=== PATIENT | male | born 1990 | race Caucasian/White ===

== ENCOUNTER 2024-05-25 14:26 | Emergency (ER) | payer OTHER, SELFPAY ==
[2024-05-25 14:37] VITALS: BP 140/93; PULSE 94; RESP 20; TEMP 36.7; O2SAT 100; BMI 21.5
--- NOTE | 2024-05-25 14:52 | DI.RAD.S_ITS ---
PROCEDURE: XR WRIST LT MIN 3V INDICATIONS: Animal Attack, swelling TECHNIQUE: 4 views of the wrist were acquired. COMPARISON: None. FINDINGS: Bones: Cortical irregularity of the distal radial metaphysis laterally. No suspicious bony lesions. Soft tissues: Subcutaneous emphysema is noted at the distal wrist. Small hyperdense focus anterior to the distal radius in the subcutaneous soft tissues. No suspicious soft tissue calcifications. IMPRESSION: Cortical irregularity and step-off of the distal radius laterally consistent with mildly displaced fracture. Subcutaneous emphysema within the overlying soft tissues. Small hyperdense focus anterior to the distal radius, only seen on lateral view, may represent foreign body or tiny osseous fragment. Dictated by: Bernardino Harrington M.D. on 05/25/2024 at 14:38 Approved by: Bernardino Harrington M.D. on 05/25/2024 at 14:40
[2024-05-25] MEDS: OXYCODONE IR 5 MG TABLET PO ×2 (15:29→18:50)
[2024-05-25] MEDS: ONDANSETRON 4 MG ODT SL (15:30)
[2024-05-25] MEDS: TET,DIPH,PERTUSS(ACELL),VAC/PF 0.5 ML SYRINGE IM (16:15)
[2024-05-25] MEDS: AMOXICILLIN/CLAV 875/125 MG 1 TAB PO (16:15)
[2024-05-25] MEDS: BACITRACIN OINT 0.9 GM PCKT 1 APPLIC TOP (17:00)
[2024-05-25 17:30] VITALS: PULSE 118; RESP 20; O2SAT 96
--- NOTE | 2024-05-25 18:41 | ED_ITS ---
HPI - Animal Bite General Chief Complaint: Animal Bite Stated Complaint: Bit by dog Time Seen by Provider: 05/25/24 15:03 Source: patient Mode of arrival: Ambulatory History of Present Illness HPI narrative: 33-year-old man who arrives by private vehicle accompanied by family. He was bitten by a friend's gracie dog when the dog attacked his daughter and he attempted to intervene. Bites were primary of the left hand he also had a bite to the back on the left side. Reports some numbness in his left fingers. His tetanus is not current. He is otherwise healthy. I would consider this to be a provoked bite. Dog is a household pet known to the patient. Related Data Previous Rx's Medication Instructions Recorded amoxicillin 875 mg-potassium 1 tab PO BID #10 tabs 05/25/24 clavulanate 125 mg tablet hydrocodone 5 mg-acetaminophen 325 1 tab PO Q4H PRN pain #14 tabs 05/25/24 mg tablet Allergies Allergy/AdvReac Type Severity Reaction Status Date / Time No Known Drug Allergies Allergy Verified 05/25/24 14:37 Patient History Social History Smoking Status: Current every day smoker Smoking Status: Current every day smoker alcohol intake frequency: holidays/special occasions only Substance Use Type: marijuana Exam Initial Vital Signs Initial Vital Signs: Vital Signs Temperature 98.0 F 05/25/24 14:37 Pulse Rate 94 H 05/25/24 14:37 Respiratory Rate 20 05/25/24 14:37 Blood Pressure 140/93 H 05/25/24 14:37 Pulse Oximetry 100 05/25/24 14:37 Oxygen Delivery Method Room Air 05/25/24 14:37 Normocephalic atraumatic Chest Other: Superficial laceration to the left posterior thorax. Nothing suturable no penetrating injury Extrem Other: Left upper extremity has multiple dog bite wounds. There is a 1 cm puncture wound over the dorsum of the 3rd metacarpal. There is a puncture wound in the 1st webspace and the back of the thumb near the MCP joint. There is a 3 cm linear laceration overlying the flexor tendons of the distal left forearm just proximal to the flexor crease. There is also a puncture wound at the flexor crease on the radial aspect of the forearm. Patient has good flexion and extension of all 5 fingers. He has intact light touch sensation in all 5 fingers and capillary refills intact. He is reporting paresthesias in the fingers and pain with movement. Procedures Laceration Repair Laceration 1: Site: other (Left wrist) Size (cm): 3 Skin layer closed with: nylon Skin layer suture size: 4-0 Technique: simple, interrupted Orthopedic Splinting/Casting Injury #1: Side: left Upper Extremity Immobilizer: volar splint Post splinting neuro exam: intact Post splinting vascular exam: intact Placed by: Nursing Course Orders Ordered: ED Orders 05/25/24 14:52 XR wrist LT min 3V Stat Discontinued Medications Amoxicillin/Clavulanate Potassium (Amoxicillin/Clav 875/125 Mg) 1 tab PO NOW O NE Stop: 05/25/24 15:51 Last Admin: 05/25/24 16:15 Dose: 1 tab Documented By: Bacitracin (Bacitracin Oint 0.9 Gm Pckt) 1 applic TOP NOW ONE Stop: 05/25/24 16:50 Last Admin: 05/25/24 17:00 Dose: 1 applic Documented By: Diphtheria/Tetanus/Acell Pertussis (Tet,Diph,Pertuss(Acell),Vac/Pf 0.5 Ml Syringe) 0.5 ml IM .ONCE ONE Stop: 05/25/24 15:51 Last Admin: 05/25/24 16:15 Dose: 0.5 ml Documented By: Ondansetron HCl (Ondansetron 4 Mg Odt) 4 mg SL NOW ONE Stop: 05/25/24 15:22 Last Admin: 05/25/24 15:30 Dose: 4 mg Documented By: Oxycodone HCl (Oxycodone Ir 5 Mg Tablet) 5 mg PO NOW ONE Stop: 05/25/24 15:22 Last Admin: 05/25/24 15:29 Dose: 5 mg Documented By: Oxycodone HCl (Oxycodone Ir 5 Mg Tablet) 5 mg PO NOW ONE Stop: 05/25/24 18:42 Last Admin: 05/25/24 18:50 Dose: 5 mg Consultations Consultation #1: Case was discussed with Orthopedics, Dr. Any Haskins, will see the patient and follow up Vital Signs Vital signs: Vital Signs - 8 hr 05/25/24 14:37 05/25/24 17:30 Temperature 98.0 F Pulse Rate 94 H 118 H Respiratory Rate 20 20 Blood Pressure 140/93 H Pulse Oximetry 100 Oxygen Delivery Method Room Air MDM - Animal Bite Imaging Data Extremity x-ray #1: My Impression: Left wrist, possible cortical fracture of the distal radius, some soft tissue gas. No displaced fracture. No foreign body observed Radiologist's Impression: [address] [place] [id number] XRay Report Signed Patient: David Collins MR#: [id number] : 1990 Acct:[id number] Age/Sex: 33 / M Date of Service: 05/25/24 Loc: ED Accession Number: [id number] Procedure: XR wrist LT min 3V Ordering Provider: Stefani Gómez D.O. PROCEDURE: XR WRIST LT MIN 3V INDICATIONS: Animal Attack, swelling TECHNIQUE: 4 views of the wrist were acquired. COMPARISON: None. FINDINGS: Bones: Cortical irregularity of the distal radial metaphysis laterally. No suspicious bony lesions. Soft tissues: Subcutaneous emphysema is noted at the distal wrist. Small hyperdense focus anterior to the distal radius in the subcutaneous soft tissues. No suspicious soft tissue calcifications. IMPRESSION: Cortical irregularity and step-off of the distal radius laterally consistent with mildly displaced fracture. Subcutaneous emphysema within the overlying soft tissues. Small hyperdense focus anterior to the distal radius, only seen on lateral view, may represent foreign body or tiny osseous fragment. Dictated by: Bernardino Harrington M.D. on 05/25/2024 at 14:38 Approved by: Bernardino Harrington M.D. on 05/25/2024 at 14:40 [facility] [place] Narrative Medical decision making narrative: 34-year-old male with dog bite to left hand and wrist. Wounds were irrigated in the emergency department, there was 1 laceration that I did loosely approximate. Had some pain with movement and laceration is in the area of flexor tendons. He is referred to orthopedics for follow up. Patient was started on Augmentin. Provided a prescription for [place] for pain. He is going to follow up with Orthopedics he was splinted in position of function. Discharge Plan Departure Patient Disposition: Home Clinical Impression: Dog bite Qualifiers: Encounter type: initial encounter Qualified Code(s): W54.0XXA - Bitten by dog, initial encounter Instructions: DI for Dog Bite Prescriptions: New amoxicillin-pot clavulanate 875-125 mg tablet 1 tab PO BID Qty: 10 0RF hydrocodone-acetaminophen 5-325 mg tablet 1 tab PO Q4H PRN (Reason: pain) Qty: 14 0RF Referrals: Miscellaneous,[facility] [Primary Care Provider] - Kimberly Haskins MD [Physician] - Stand Alone Forms: Patient Portal/API
[2024-05-25 19:34] VITALS: BP 146/73; PULSE 86; RESP 16; O2SAT 98
--- NOTE | 2024-06-07 19:58 | PC.NURSE ---
Addendum entered by Leda Burris R.N. 06/07/24 19:59: Late entry. Photos taken 05/25/24 @ 1930. Original Note: Bite to right flank
== END 2024-05-25 19:35 | disposition home or self-care (01) ==
PROVIDERS: Emergency Provider Emergency Medicine
DX: S61.452A Open bite of left hand, initial encounter (principal); S61.552A Open bite of left wrist, initial encounter; W54.0XXA Bitten by dog, initial encounter; Z23 Encounter for immunization
CPT/HCPCS: 12002; 29125; 73110; 90471; 99283; 99284; 90715